=== PATIENT | male | born 1990 | race Caucasian/White ===

== ENCOUNTER 2024-03-13 21:31 | Emergency (ER) | payer OTHER, SELFPAY ==
[2024-03-13 21:35] VITALS: BP 124/88; PULSE 64; TEMP 36.5; O2SAT 99; BMI 26.3
[2024-03-13] MEDS: 0.9 % SODIUM CHLORIDE 1,000 ML 1000 ML IV (22:19)
[2024-03-13 22:20] LABS: Basophils Percent Auto 0.2 % (0.2-2.0); Eosinophils Absolute Auto 0.1 10^3/uL (0.0-0.7); Eosinophils Percent Auto 0.4 % (0.9-7.0); Hemoglobin 13.6 g/dL (14.0-18.0); Immature Granulocytes Abs Auto 0.06 10^3/uL (0.00-0.03); Immature Granulocytes Pct Auto 0.5 % (0.0-0.5); Lymphocytes Absolute Auto 2.4 10^3/uL (1.2-3.8); Lymphocytes Percent Auto 18.9 % (20.5-60.0); Mean Corpuscular HGB Conc 31.6 g/dL (29.9-35.2); Mean Corpuscular Hemoglobin 28.1 pg (25.9-34.0); Mean Corpuscular Volume 88.8 fL (80.0-94.0); Mean Platelet Volume 8.8 fL (9.5-13.5); Monocytes Absolute Auto 0.9 10^3/uL (0.3-0.8); Monocytes Percent Auto 7.2 % (1.7-12.0); Neutrophils Absolute Auto 9.2 10^3/uL (1.4-6.5); Neutrophils Percent Auto 72.8 % (43.0-75.0); Platelet Count 415 10^3/uL (150-450); Red Blood Count 4.84 10^6/uL (4.70-6.10); Red Cell Distribution Width 12.4 % (11.0-15.0); White Blood Count 12.7 10^3/uL (4.0-11.0)
[2024-03-13 22:45] LABS: Alanine Aminotransferase 19 U/L (16-63); Albumin Globulin Ratio 1.2; Albumin Level 3.8 g/dL (3.4-5.0); Alkaline Phosphatase 67 U/L (46-116); Aspartate Amino Transferase 13 U/L (15-37); Bilirubin Total 0.6 mg/dL (0.2-1.0); Carbon Dioxide 26.2 mmol/L (21.0-32.0); Chloride 103 mmol/L (98-107); Estimated GFR (African America >60 (>=60); Estimated GFR (Non-African Ame >60 (>=60); Globulin 3.3 g/dL; Glucose 91 mg/dL (74-106); Potassium 4.2 mmol/L (3.5-5.1); Sodium 141 mmol/L (136-145); Total Protein 7.1 g/dL (6.4-8.2)
--- NOTE | 2024-03-13 22:59 | ED_ITS ---
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 The patient had a Smith catheter placed last Wednesday in [place] after he had a self-inflicted urethral injury. The patient stated to the nurse that he was fooling around down there . A Smith catheter was placed with recommendation for removal this week. The patient does have an appointment tomorrow morning with [facility] urology to have the Smith catheter removed. He also has been prepping for a colonoscopy that was scheduled due to some rectal bleeding in the recent past. He states that he has been straining and having diarrhea with colonoscopy and although his urine was clear earlier today and he felt confident that the Smith catheter could be removed, has since become bloody again. He is not having any fevers or chills. He has no abdominal pain or flank pain. Related Data Home Medications ?Medication ?Instructions ?Recorded ?Confirmed dextroamphetamine-amphetamine 10 10 mg PO QNOON 03/13/24 03/13/24 mg tablet dextroamphetamine-amphetamine 20 20 mg PO QAM 03/13/24 03/13/24 mg tablet levofloxacin 500 mg tablet 500 mg PO DAILY 03/13/24 03/13/24 [id number] 140 gram-sod sulfate 9 500 ml PO DAILY 03/13/24 03/13/24 gram-NaCl 5.2gram-KCl-C oral pwdr packs (Plenvu) Allergies Allergy/AdvReac Type Severity Reaction Status Date / Time Penicillins Allergy Severe Verified 03/13/24 21:40 tramadol Allergy Severe Verified 03/13/24 21:40 Review of Systems ROS Status of ROS 10 or more systems reviewed and unremark able except as noted in history and below Exam Narrative Exam Narrative: Nurses note and vital signs reviewed and patient is not hypoxic. General: The patient appears well and in no apparent distress. Patient is resting comfortably on cart. Skin: Warm, dry, no pallor noted. There is no rash noted. Head: Normocephalic, atraumatic Eye: Normal conjunctiva, no drainage, EOMI. PERRL Ears, Nose, Mouth, and Throat: oral mucosa is moist. Cardiovascular: Regular Rate and Rhythm Respiratory: Patient is in no distress, no accessory muscle use, lungs are clear to auscultation, no wheezing, rales or rhonchi Back: non-tender, no CVA tenderness bilaterally to percussion. GI: Normal bowel sounds, no tenderness to palpation, no masses appreciated. No rebound, guarding, or rigidity noted. - deferred Musculoskeletal: The patient has no evidence of calf tenderness, no pitting edema, symmetrical pulses noted bilaterally Neurological: A&O x4, normal speech Psychiatric: Cooperative Constitutional Vital Signs, click to edit/add: Last Vital Signs Temp 97.7 F 03/13/24 21:35 Pulse 64 03/13/24 21:35 Resp 18 03/13/24 21:35 BP 124/88 03/13/24 21:35 Pulse Ox 99 03/13/24 21:35 O2 Del Method Room Air 03/13/24 21:35 Course Vital Signs Vital signs: Vital Signs Temperature 97.7 F 03/13/24 21:35 Pulse Rate 64 03/13/24 21:35 Respiratory Rate 18 03/13/24 21:35 Blood Pressure 124/88 03/13/24 21:35 Pulse Oximetry 99 03/13/24 21:35 Oxygen Delivery Method Room Air 03/13/24 21:35 Temperature 97.7 F 03/13/24 21:35 Pulse Rate 64 03/13/24 21:35 Respiratory Rate 18 03/13/24 21:35 Blood Pressure 124/88 03/13/24 21:35 Pulse Oximetry 99 03/13/24 21:35 Oxygen Delivery Method Room Air 03/13/24 21:35 MDM - Male Genitourinary MDM Narrative Medical decision making narrative: This 33-year-old male who had a urethral injury last Wednesday while in [place] presents for evaluation requesting that his Smith catheter be removed. He does have an appointment in the morning with [facility] urology to have it removed. He states that his urine has been clear until earlier today when he started becoming bloody after straining while having loose bowel movements during a colon prep for a colonoscopy tomorrow as well. I explained to the patient that if we remove the Smith catheter while he is bleeding, it may clot off and he would require another catheter which could cause him more urethral damage. I also explained that the urologist would not be in favor of us removing the catheter without their consultation. The patient is unclear exactly which urologist he is seeing tomorrow. Dr. Hunt is on-call for urology. The patient is agreeable to leaving the catheter in place until he can be seen tomorrow. I did offer to give him IV fluids to help his urine become more clear in hopes that the catheter can be removed tomorrow when he is seen in follow-up. He was in agreement with this plan and IV was placed. He was medicated with IV fluids. Routine labs were reviewed. His white count is mildly elevated at 12.7. He has a normal hemoglobin. Electrolytes including BUN and creatinine are normal. Lab Data Labs: Lab Results 03/13/24 Range/Units 22:15 WBC 12.7 H (4.0-11.0) 10^3/uL RBC 4.84 (4.70-6.10) 10^6/uL Hgb 13.6 L (14.0-18.0) g/dL Hct 43.0 (42.0-54.0) % MCV 88.8 (80.0-94.0) fL MCH 28.1 (25.9-34.0) pg MCHC 31.6 (29.9-35.2) g/dL RDW 12.4 (11.0-15.0) % Plt Count 415 (150-450) 10^3/uL MPV 8.8 L (9.5-13.5) fL Neut % (Auto) 72.8 (43.0-75.0) % Lymph % (Auto) 18.9 L (20.5-60.0) % [place] % (Auto) 7.2 (1.7-12.0) % Eos % (Auto) 0.4 L (0.9-7.0) % Baso % (Auto) 0.2 (0.2-2.0) % Neut # (Auto) 9.2 H (1.4-6.5) 10^3/uL Lymph # (Auto) 2.4 (1.2-3.8) 10^3/uL [place] # (Auto) 0.9 H (0.3-0.8) 10^3/uL Eos # (Auto) 0.1 (0.0-0.7) 10^3/uL Baso # (Auto) 0.0 (0.0-0.1) 10^3/uL Abs Immat Gran (auto) 0.06 H (0.00-0.03) 10^3/uL Imm/Tot Granulo (auto) 0.5 (0.0-0.5) % Sodium 141 (136-145) mmol/L Potassium 4.2 (3.5-5.1) mmol/L Chloride 103 (98-107) mmol/L Carbon Dioxide 26.2 (21.0-32.0) mmol/L Anion Gap 16.0 BUN 11.0 (7.0-18.0) mg/dL Creatinine 0.92 (0.70-1.30) mg/dL Est GFR ( Amer) >60 (>=60) Est GFR (Non-Af Amer) >60 (>=60) BUN/Creatinine Ratio 12.0 Glucose 91 (74-106) mg/dL Calcium 9.0 (8.5-10.1) mg/dL Total Bilirubin 0.6 (0.2-1.0) mg/dL AST 13 L (15-37) U/L ALT 19 (16-63) U/L Alkaline Phosphatase 67 (46-116) U/L Total Protein 7.1 (6.4-8.2) g/dL Albumin 3.8 (3.4-5.0) g/dL Globulin 3.3 g/dL Albumin/Globulin Ratio 1.2 Discharge Plan Discharge Stand Alone Forms: Portal Instructions Chief Complaint: Urogenital-Male Clinical Impression: Encounter for Smith catheter removal, Hematuria Patient Disposition: Home, Self-Care Time of Disposition Decision: 23:16 Condition: Good Prescriptions / Home Meds: No Action dextroamphetamine-amphetamine 20 mg tablet 20 mg PO QAM dextroamphetamine-amphetamine 10 mg tablet 10 mg PO QNOON levofloxacin 500 mg tablet 500 mg PO DAILY Plenvu 140-9-5.2 gram powder in packet, sequential 500 ml PO DAILY Patient Comments: once Print Language: French Instructions: Smith Catheter Placement and Care (ED), Hematuria (ED), Smith Catheter Removal (DC) Referrals: Physician,Non-Staff, MD [Primary Care Provider] - 1 week
== END 2024-03-13 23:26 | disposition home or self-care (01) ==
PROVIDERS: Emergency Provider Emergency Medicine; Family Provider Family Medicine
DX: Z46.6 Encounter for fitting and adjustment of urinary device (principal); R31.9 Hematuria, unspecified
CPT/HCPCS: 36415; 80053; 85025; 99284